=== PATIENT | male | born 1955 | race Caucasian/White ===

== ENCOUNTER 2017-07-03 19:59 | Emergency (ER) | payer OTHER ==
--- NOTE | ~2017-07-03 | ER ---
PATIENT'S NAME: [facility] AGE: 61 Y [address] ROOM: [place] [address] LOCATION: [facility] ADMIT DATE: 07/03/2017 ER/Outpatient Report DISCHARGE DATE: 07/03/2017 FAMILY PHYSICIAN: Eve Hernandez MD ATTENDING PHYSICIAN: Mann Ramon Admission date and time are documented in the medical record. I saw the patient at 2015 hours. CHIEF COMPLAINT: Urine retention, unable to urinate. HISTORY OF PRESENT ILLNESS: The patient is a 61-year-old male who around 1500 hours this afternoon underwent a UroLift procedure. He voided prior to being discharged from the hospital; however, got home and then was unable to urinate. He presented to the emergency room with suprapubic lower abdominal discomfort and urine retention unable to urinate. Some back pain. No chest pain or shortness of breath. No headache, eyes, ears, nose, throat, neck, or spine pain. No fall or trauma. No recent colds, coughs, flus, fever, chills, or sweats. He does have some allergies. No lightheadedness, dizziness, syncope, or near syncope. No joint or muscle swelling, redness, or pain. No skin eruptions or rash. No history of neuro changes, psych issues, or endocrine problems. HOME MEDICATIONS: See attached medication list. ALLERGIES: CODEINE AND SULFA. SOCIAL HISTORY: Nonsmoker, nondrinker. SIGNIFICANT PAST MEDICAL HISTORY: Benign prostatic hypertrophy, urine retention, degenerative joint disease, and degenerative osteoarthritis. OPERATIONS: UroLift, cervical neck fusion, cholecystectomy, carpal tunnel release, and bilateral total hip arthroplasty. REVIEW OF SYSTEMS: All systems reviewed by me are negative with the exception of those discussed in the history of present illness. PATIENT'S NAME: [facility] AGE: 61 Y [address] ROOM: [place] [address] LOCATION: [facility] ADMIT DATE: 07/03/2017 ER/Outpatient Report DISCHARGE DATE: 07/03/2017 FAMILY PHYSICIAN: Eve Hernandez MD ATTENDING PHYSICIAN: Mann Ramon PHYSICAL EXAMINATION: VITAL SIGNS: Temperature 97.3, tympanic, respirations 24, and O2 sat on room air is 97%. HEAD: Normocephalic. EYES, EARS, NOSE, THROAT: Clear. NECK: Negative. LUNGS: Clear. HEART: Regular. ABDOMEN: Soft, some suprapubic tenderness and some fullness initially that resolved with catheterization of his bladder. No CVA tenderness. EXTREMITIES: Intact. NEUROVASCULAR: Intact. SKIN: Clear. No skin eruptions or rash. LABORATORY DATA: CMS was normal except for an elevated glucose of 128, white count was 6300, 59 segs, 28 lymphs, 9 monos, 3 eos, 1 baso, hemoglobin is 15.5 with hematocrit 42.6, and platelet count is 228,000. Urine showed 0 to 2 whites, 5 to 10 reds, 0 to 2 epithelial cells, rare bacteria, 1+ amorphous material per high- powered hill, positive nitrates on a cath specimen. EMERGENCY DEPARTMENT COURSE: We did place a Coude Mcknight catheter. The patient tolerated the procedure well. We did drain about 1000 mL of urine. Did give him some morphine sulfate IV for pain. IMPRESSION: 1. Urine retention, status post operative procedure UroLift. 2. Benign prostatic hypertrophy. PLAN: The patient dismissed home. Observation. Activity as tolerated. We did keep the catheter in at least until tomorrow. Did try the patient with a leg bag. The patient is to talk with Urology about removing the catheter tomorrow possibly tomorrow afternoon. Continue postop care and medications. Follow up with personal physician as needed and urologist as recommended. Discussion ensued with the patient concerning my findings and recommendations, he understands. MANN RAMON MD SDS/modl PATIENT'S NAME: [facility] AGE: 61 Y [address] ROOM: [place] [address] LOCATION: [facility] ADMIT DATE: 07/03/2017 ER/Outpatient Report DISCHARGE DATE: 07/03/2017 FAMILY PHYSICIAN: Eve Hernandez MD ATTENDING PHYSICIAN: Mann Ramon /[id number] d: 07/04/17226 t: 07/04/17 181, OUTPATIENT REPORT
[2017-07-03 20:56] LABS: BASOPHIL % 0.6 %; EOSINOPHIL # 0.2 K/uL (0.0-0.5); EOSINOPHIL % 2.7 %; HEMATOCRIT 42.6 % (37.0-53.0); HEMOGLOBIN 15.5 g/dL (12.0-17.0); IMMATURE GRANULOCYTE % 0.2 %; LYMPHOCYTE # 1.8 K/uL (0.8-4.0); LYMPHOCYTE % 28.2 %; MCH 30.2 pg (27.0-34.0); MCHC 36.4 gm/dL (32.0-36.5); MCV 82.9 fl (83.0-98.0); MONOCYTE # 0.6 K/uL (0.0-1.0); MONOCYTE % 8.9 %; MPV 9.4 fl (9.4-12.4); NEUTROPHIL # (ANC) 3.8 K/uL (1.4-9.0); NEUTROPHIL % 59.4 %; NRBC % 0 /100WBC (0-0.00); PLATELET COUNT 228 K/uL (150-450); RBC 5.14 M/uL (4.00-6.00); RDW-CV 12.1 % (11.9-14.6); WBC 6.3 K/uL (4.0-11.0)
[2017-07-03 20:59] LABS: BLOOD URINE 250 /UL (NEGATIVE); GLUCOSE URINE NEGATIVE (NEGATIVE); KETONE URINE NEGATIVE (NEGATIVE); LEUKOCYTES URINE NEGATIVE /UL (NEGATIVE); NITRITE URINE POSITIVE (NEGATIVE); PROTEIN URINE NEGATIVE (NEGATIVE); SPEC GRAVITY URINE 1.015 (1.003-1.035); TURBIDITY URINE CLEAR (CLEAR); UROBILINOGEN URINE 4 mg/dL (NORMAL)
[2017-07-03 21:13] LABS: ALBUMIN 3.5 gm/dL (3.5-5.0); ANION GAP 12.9 (10.0-19.0); CALCIUM 8.6 mg/dL (8.5-10.5); POTASSIUM 3.9 mMol/L (3.7-5.1); TOTAL BILIRUBIN 0.5 mg/dL (0.0-1.5); TOTAL PROTEIN 6.9 g/dL (6.0-8.4)
[2017-07-03 21:18] LABS: COLOR URINE OTHER (YELLOW)
[2017-07-03 21:20] LABS: WBC URINE 0-2 #/HPF (NEGATIVE)
[2017-07-03 21:21] LABS: AMORPHOUS URINE 1+ (NEGATIVE); EPITHELIAL URINE 0-2 #/HPF (NEGATIVE)
[2017-07-03 21:22] LABS: BACTERIA URINE RARE (NEGATIVE)
== END 2017-07-03 21:49 | disposition disaster alternative care site (69) ==
LOC: GMED 19:59
PROVIDERS: Emergency Medicine
PROC: 0T9B70Z Drainage of Bladder with Drainage Device, Via Natural or Artificial Opening (ICD-10-PCS; principal; 2017-07-03)
DX: N40.1 Benign prostatic hyperplasia with lower urinary tract symptoms (principal); R33.8 Other retention of urine; M19.90 Unspecified osteoarthritis, unspecified site; Z90.49 Acquired absence of other specified parts of digestive tract; Z88.2 Allergy status to sulfonamides; Z88.5 Allergy status to narcotic agent; Z96.643 Presence of artificial hip joint, bilateral; Z98.890 Other specified postprocedural states; Z79.899 Other long term (current) drug therapy